=== PATIENT | male | born 1985 ===

== ENCOUNTER 2019-09-29 09:49 | Inpatient (IN) | payer OTHER ==
[~2019-09-29] VITALS: Ht 170.2 cm; Wt 100.0 kg
[2019-09-29] MEDS ORDERED: ACETAMINOPHEN 325 MG TABLET PO PRN (11:00)
[2019-09-29] MEDS ORDERED: DIPHENOXYLATE/ATROP 2.5-0.025 MG TABLET PO PRN (11:00)
[2019-09-29] MEDS ORDERED: ONDANSETRON HCL 4 MG/2 ML VIAL IVP PRN (11:00)
[2019-09-29] MEDS ORDERED: 0.9% SODIUM CHLORIDE 10 ML SYRINGE IVP PRN ×2 (11:00→21:00)
[2019-09-29] MEDS ORDERED: LORazepam 2 MG TABLET PO PRN (11:00)
[2019-09-29 12:23] LABS: APPEARANCE,URINE CLEAR (CLEAR); BILIRUBIN,URINE NEGATIVE (NEGATIVE); GLUCOSE, URINE (UA) NEGATIVE (NEGATIVE); KETONES,URINE NEGATIVE (NEGATIVE); LEUKOCYTE ESTERASE ,URINE SMALL (NEGATIVE); NITRATE,URINE NEGATIVE (NEGATIVE); OCCULT BLOOD,URINE NEGATIVE (NEGATIVE); PH,URINE 5.5 (5.0-8.0); PROTEIN,URINE NEGATIVE (NEGATIVE)
[2019-09-29 12:38] LABS: AMPHET/METH SCREEN,URINE POSITIVE (NEGATIVE); BARBITURATE SCREEN, URINE NEGATIVE (NEGATIVE); BENZODIAZEPINES SCREEN,URINE NEGATIVE (NEGATIVE); CANNABINOID SCREEN,URINE NEGATIVE (NEGATIVE); COCAINE SCREEN,URINE NEGATIVE (NEGATIVE); METHADONE SCREEN, URINE NEGATIVE (NEGATIVE); OPIATE SCREEN,URINE POSITIVE (NEGATIVE)
[2019-09-29 12:39] LABS: PHENCYCLIDINE SCREEN,URINE NEGATIVE (NEGATIVE)
[2019-09-29 12:49] LABS: BACTERIA,URINE None Seen /HPF (None Seen); WBC,URINE None Seen /HPF (0-5)
[2019-09-29 13:41] LABS: BASOPHILS % (AUTO) 0.2 % (0.0-2.0); EOSINOPHILS % (AUTO) 0 % (1.0-6.0); HEMATOCRIT 37.4 % (41-53); HEMOGLOBIN 12.8 g/dL (13.5-17.5); LYMPHOCYTES # (AUTO) 1.5 K/uL (1.0-4.8); LYMPHOCYTES % (AUTO) 27.3 % (22.0-44.0); MEAN CORPUSCULAR HEMOGLOBIN 27.1 pg (26.0-34.0); MEAN CORPUSCULAR HGB CONC 34.1 G/dL (31.0-37.0); MEAN CORPUSCULAR VOLUME 79 fL (80-100); MONOCYTES # (AUTO) 0.5 K/uL (0.1-1.0); MONOCYTES % (AUTO) 9.6 % (2.0-9.0); NEUTROPHILS # (AUTO) 3.3 K/uL (1.8-7.7); NEUTROPHILS % (AUTO) 62.9 % (40.0-70.0); PLATELET COUNT (AUTO) 246 K/uL (150-450); RED BLOOD CELL COUNT(AUTO) 4.71 MIL/uL (4.50-5.90); RED CELL DISTRIBUTION WIDTH 14.8 % (11.5-14.5)
[2019-09-29 13:59] VITALS: BP 119/78
[2019-09-29 14:10] LABS: ANION GAP 9 mmol/L (8-16); CALCIUM, TOTAL 8.6 mg/dL (8.8-10.5); CARBON DIOXIDE 25 mmol/L (22-29); CHLORIDE 102 mmol/L (98-107); CREATININE 0.81 mg/dL (0.60-1.30); GLOMERULAR FILTR. RATE CALC > 60 mL/min (>60); GLUCOSE,RANDOM 110 mg/dL (70-110); POTASSIUM 4.2 mmol/L (3.5-5.1); SODIUM SERUM 136 mmol/L (136-145); UREA NITROGEN, BLOOD 13 mg/dL (7-18)
[2019-09-29 14:16] LABS: ALANINE AMINOTRANSFERASE 53 U/L (12-78); ALBUMIN 3.5 g/dL (3.4-5.0); ALKALINE PHOSPHATASE 172 U/L (46-116); ASPARTATE AMINOTRANSFERASE 31 U/L (15-37); BILIRUBIN,TOTAL 0.6 mg/dL (0.1-1.0); CHOL/HDL RATIO 2.7 (4.2-7.3); CHOLESTEROL 123 mg/dL (131-200); HDL CHOLESTEROL 45 mg/dL (40-60); LDL CHOL (CALC.) 67 mg/dL (0-130); TOTAL PROTEIN, SERUM 7.7 g/dL (6.4-8.2); TRIGLYCERIDES 53 mg/dL (15-150)
[2019-09-29 15:40] VITALS: BP 119/78
[2019-09-29] MEDS ORDERED: INFLUENZA VIRUS VACCINE QVS 2019-20 (3YR+)/PF 60 MCG/0.5 ML SYRINGE IM ONE (15:45)
[2019-09-29 20:46] VITALS: BP 127/76
[2019-09-29] MEDS: ACETAMINOPHEN 325 MG TABLET PO PRN (22:02)
[2019-09-29] MEDS: PANTOPRAZOLE SODIUM 40 MG DR TABLET PO SCH (22:02)
[2019-09-29] MEDS: ONDANSETRON HCL 4 MG/2 ML VIAL IVP PRN (22:55)
[2019-09-29] MEDS: LORazepam 2 MG/ML VIAL IVP PRN (23:56)
[2019-09-30 00:07] VITALS: BP 122/75
[2019-09-30] MEDS: ACETAMINOPHEN 325 MG TABLET PO PRN ×2 (05:19→14:17)
[2019-09-30 05:45] VITALS: BP 102/61
[2019-09-30 07:56] VITALS: BP 112/76
[2019-09-30] MEDS: LORazepam 2 MG/ML VIAL IVP PRN ×2 (08:16→14:17)
[2019-09-30] MEDS: PANTOPRAZOLE SODIUM 40 MG DR TABLET PO SCH (08:16)
[2019-09-30] MEDS ORDERED: POTASSIUM CHL 10 MEQ/WATER 50 ML IV PRN (08:45)
[2019-09-30] MEDS ORDERED: MAGNESIUM SULFATE 2 GM/WATER 50 ML IV PRN (08:45)
[2019-09-30] MEDS ORDERED: MAGNESIUM SULFATE 4 GM/WATER 100 ML IV PRN (08:45)
[2019-09-30] MEDS ORDERED: MAGNESIUM OXIDE 400 MG TABLET PO PRN (08:45)
[2019-09-30] MEDS ORDERED: POTASSIUM CHLORIDE 20 MEQ ER TABLET PO PRN (08:45)
[2019-09-30 11:00] LABS: BASOPHILS % (AUTO) 1.2 % (0.0-2.0); EOSINOPHILS % (AUTO) 0.3 % (1.0-6.0); HEMATOCRIT 38.9 % (41-53); HEMOGLOBIN 13.7 g/dL (13.5-17.5); LYMPHOCYTES # (AUTO) 1.3 K/uL (1.0-4.8); LYMPHOCYTES % (AUTO) 24.4 % (22.0-44.0); MEAN CORPUSCULAR HEMOGLOBIN 27.5 pg (26.0-34.0); MEAN CORPUSCULAR HGB CONC 35.1 G/dL (31.0-37.0); MEAN CORPUSCULAR VOLUME 79 fL (80-100); MONOCYTES # (AUTO) 0.4 K/uL (0.1-1.0); MONOCYTES % (AUTO) 7.5 % (2.0-9.0); NEUTROPHILS # (AUTO) 3.5 K/uL (1.8-7.7); NEUTROPHILS % (AUTO) 66.6 % (40.0-70.0); PLATELET COUNT (AUTO) 255 K/uL (150-450); RED BLOOD CELL COUNT(AUTO) 4.96 MIL/uL (4.50-5.90); RED CELL DISTRIBUTION WIDTH 14.2 % (11.5-14.5)
[2019-09-30 11:07] LABS: ALBUMIN 3.7 g/dL (3.4-5.0); ANION GAP 12 mmol/L (8-16); CALCIUM, TOTAL 8.9 mg/dL (8.8-10.5); CARBON DIOXIDE 22 mmol/L (22-29); CHLORIDE 103 mmol/L (98-107); CREATININE 0.84 mg/dL (0.60-1.30); GLOMERULAR FILTR. RATE CALC > 60 mL/min (>60); GLUCOSE,RANDOM 110 mg/dL (70-110); POTASSIUM 3.8 mmol/L (3.5-5.1); SODIUM SERUM 137 mmol/L (136-145); UREA NITROGEN, BLOOD 10 mg/dL (7-18)
[2019-09-30 11:38] VITALS: BP 114/73
[2019-09-30] MEDS: ONDANSETRON HCL 4 MG/2 ML VIAL IVP PRN ×2 (11:42→16:20)
[2019-09-30 15:40] VITALS: BP 122/68
[2019-09-30] MEDS ORDERED: ACETAMINOPHEN/CODEINE 300-15 MG TABLET PO PRN (19:00)
[2019-09-30] MEDS ORDERED: LOPERAMIDE HCL 2 MG CAPSULE PO PRN (19:00)
[2019-09-30] MEDS ORDERED: METOCLOPRAMIDE HCL 5 MG/ML 2 ML VIAL IVP PRN (19:00)
[2019-09-30] MEDS ORDERED: LORazepam 2 MG/ML VIAL IVP PRN (19:00)
[2019-09-30 19:54] VITALS: BP 131/89
[2019-09-30] MEDS: TEMAZEPAM 15 MG CAPSULE PO SCH (20:09)
[2019-09-30] MEDS: DICYCLOMINE HCL 10 MG CAPSULE PO PRN (20:09)
[2019-09-30] MEDS ORDERED: ONDANSETRON HCL 4 MG/2 ML VIAL IVP PRN (21:00)
[2019-09-30] MEDS: ZOLPIDEM TARTRATE 5 MG TABLET PO PRN (22:54)
[2019-10-01 00:06] VITALS: BP 125/86
[2019-10-01] MEDS: LORazepam 2 MG/ML VIAL IVP PRN ×3 (02:50→13:07)
[2019-10-01 05:15] VITALS: BP 129/88
[2019-10-01 06:57] LABS: HIV 1-2 SCREEN 4TH GEN W/RFLX Non Reactive (Non Reactive)
[2019-10-01 07:21] LABS: BASOPHILS % (AUTO) 0.1 % (0.0-2.0); EOSINOPHILS % (AUTO) 0 % (1.0-6.0); HEMATOCRIT 38.5 % (41-53); HEMOGLOBIN 13.7 g/dL (13.5-17.5); LYMPHOCYTES # (AUTO) 1.6 K/uL (1.0-4.8); MEAN CORPUSCULAR HEMOGLOBIN 27.7 pg (26.0-34.0); MEAN CORPUSCULAR HGB CONC 35.6 G/dL (31.0-37.0); MEAN CORPUSCULAR VOLUME 78 fL (80-100); MONOCYTES # (AUTO) 0.6 K/uL (0.1-1.0); MONOCYTES % (AUTO) 8.5 % (2.0-9.0); NEUTROPHILS # (AUTO) 5.2 K/uL (1.8-7.7); NEUTROPHILS % (AUTO) 70.4 % (40.0-70.0); PLATELET COUNT (AUTO) 283 K/uL (150-450); RED BLOOD CELL COUNT(AUTO) 4.95 MIL/uL (4.50-5.90); RED CELL DISTRIBUTION WIDTH 14.6 % (11.5-14.5)
[2019-10-01 07:23] LABS: ANION GAP 11 mmol/L (8-16); CALCIUM, TOTAL 8.8 mg/dL (8.8-10.5); CARBON DIOXIDE 23 mmol/L (22-29); CHLORIDE 100 mmol/L (98-107); CREATININE 0.93 mg/dL (0.60-1.30); GLOMERULAR FILTR. RATE CALC > 60 mL/min (>60); GLUCOSE,RANDOM 110 mg/dL (70-110); POTASSIUM 3.9 mmol/L (3.5-5.1); SODIUM SERUM 134 mmol/L (136-145); UREA NITROGEN, BLOOD 14 mg/dL (7-18)
[2019-10-01 07:47] VITALS: BP 131/91
[2019-10-01] MEDS: PANTOPRAZOLE SODIUM 40 MG DR TABLET PO SCH (07:58)
[2019-10-01] MEDS: DICYCLOMINE HCL 10 MG CAPSULE PO PRN (07:59)
[2019-10-01 11:39] VITALS: BP 127/66
[2019-10-01] MEDS ORDERED: BACLOFEN 10 MG TABLET PO PRN (15:00)
[2019-10-01] MEDS ORDERED: IBUPROFEN 600 MG TABLET PO PRN (15:00)
[2019-10-01] MEDS ORDERED: MAG HYDROX/AL HYDROX/SIMETH ES 30 ML SUSPENSION UDCUP PO PRN (15:00)
[2019-10-01] MEDS ORDERED: TraZODone HCL 50 MG TABLET PO PRN (15:00)
[2019-10-01] MEDS ORDERED: LORazepam 1 MG TABLET PO PRN (15:00)
[2019-10-01] MEDS ORDERED: CloNIDine HCL 0.1 MG TABLET PO PRN (15:00)
[2019-10-01] MEDS ORDERED: HydrOXYzine PAMOATE 50 MG CAPSULE PO PRN (15:00)
[2019-10-01] MEDS ORDERED: ACETAMINOPHEN 325 MG TABLET PO PRN (15:00)
[2019-10-01 15:10] VITALS: BP 119/78
[2019-10-01] MEDS: SODIUM CHLORIDE 0.45% 1,000 ML IV SCH (15:34)
[2019-10-01 20:01] VITALS: BP 125/80
[2019-10-01] MEDS: TEMAZEPAM 15 MG CAPSULE PO SCH (20:46)
[2019-10-02] VITALS (7 sets, daily range): BP systolic 113–135; BP diastolic 67–91
[2019-10-02] MEDS: SODIUM CHLORIDE 0.45% 1,000 ML IV SCH ×2 (04:08→11:15)
[2019-10-02] MEDS: PANTOPRAZOLE SODIUM 40 MG DR TABLET PO SCH (08:11)
[2019-10-02] MEDS: CloNIDine HCL 0.1 MG TABLET PO SCH ×2 (15:00→20:36)
[2019-10-02] MEDS: PROMETHAZINE HCL 25 MG TABLET PO PRN (20:35)
[2019-10-02] MEDS: TEMAZEPAM 15 MG CAPSULE PO SCH (20:36)
[2019-10-03] MEDS: PROMETHAZINE HCL 25 MG TABLET PO PRN (00:38)
[2019-10-03] MEDS: CloNIDine HCL 0.1 MG TABLET PO SCH (02:38)
[2019-10-03] MEDS: ZOLPIDEM TARTRATE 5 MG TABLET PO PRN (02:42)
[2019-10-03 05:04] VITALS: BP 126/89
[2019-10-03] MEDS: SODIUM CHLORIDE 0.45% 1,000 ML IV SCH (06:56)
[2019-10-03] MEDS ORDERED: FOLIC ACID 1 MG TABLET PO SCH (09:00)
[2019-10-03] MEDS ORDERED: MULTIVITAMINS WITH MINERALS, THERAPEUTIC TABLET PO SCH (09:00)
[2019-10-03] MEDS ORDERED: THIAMINE HCL 100 MG TABLET PO SCH (09:00)
== END 2019-10-03 07:05 | DRG 897 ==
LOC: EMS 09:50 → 6S 11:44
PROVIDERS: ADMIT Hospitalist; ATTEND Hospitalist
DX: F11.10 Opioid abuse, uncomplicated (principal); Z87.891 Personal history of nicotine dependence; Z28.21 Immunization not carried out because of patient refusal; Z79.899 Other long term (current) drug therapy
CPT/HCPCS: 82248; 83735; 87389; G0480; J2060; J2405; J2765